=== PATIENT | female | born 1990 | race Caucasian/White ===

== ENCOUNTER → 2017-02-09 | Outpatient (REF) | payer OTHER ==
[~2017-02-09] MED LIST: ACET50TA PO; IBUP80TA PO; VITAPRTA PO
== END ==
LOC: M LAB REF 17:06
PROVIDERS: ATTEND Physician Assistant Medical
DX: N39.0 Urinary tract infection, site not specified (principal)

== ENCOUNTER → 2017-04-26 | Outpatient (CLI) | payer OTHER ==
[2017-04-26 20:06] LABS: BASO % 0.2 % (0.0-1.0); EOS # 0.2 10^3/uL (0.0-0.50); HEMATOCRIT 40.1 % (36.0-47.0); HEMOGLOBIN 13.6 g/dl (12.0-16.0); IMMATURE GRANULOCYTE % 0.2 % (0-0); LYMPH # 2.8 10^3/uL (1.5-6.5); LYMPH % 34.4 % (24.0-44.0); MEAN CORPUSCULAR HEMOGLOBIN 31.6 pg (27.0-33.0); MEAN CORPUSCULAR HGB CONC 33.9 g/dl (32.0-36.5); MEAN CORPUSCULAR VOLUME 93.3 fl (80.0-96.0); MONO # 0.4 10^3/uL (0.0-0.8); MONO % 4.8 % (0.0-5.0); NEUTROPHILS # 4.7 10^3/uL (1.8-7.7); NEUTROPHILS % 57.4 % (36.0-66.0); PLATELET COUNT, AUTOMATED 200 10^3/uL (150-450); RED CELL DISTRIBUTION WIDTH 11.7 % (11.5-14.5); WHITE BLOOD COUNT 8.1 10^3/uL (4.0-10.0)
[2017-04-26 20:56] LABS: ALBUMIN 4.2 GM/DL (3.2-5.2); ALBUMIN/GLOBULIN RATIO 1.11 (1.00-1.93); ALKALINE PHOSPHATASE 54 U/L (45-117); ALT/SGPT 14 U/L (12-78); ANION GAP 6 MEQ/L (8-16); AST/SGOT 9 U/L (7-37); BILIRUBIN,TOTAL 0.2 MG/DL (0.2-1.0); BLOOD UREA NITROGEN 15 MG/DL (7-18); CALCIUM LEVEL 8.9 MG/DL (8.5-10.1); CARBON DIOXIDE LEVEL 30 MEQ/L (21-32); CHLORIDE LEVEL 105 MEQ/L (98-107); CREATININE FOR GFR 0.56 MG/DL (0.55-1.30); FREE T4 1.15 NG/DL (0.76-1.46); GLOMERULAR FILTRATION RATE > 60.0 (>60); GLUCOSE, FASTING 90 MG/DL (70-100); SODIUM LEVEL 141 MEQ/L (136-145)
[2017-04-26 21:38] LABS: TOTAL 25(OH) VITAMIN D 9.1 NG/ML (30.0-100.0)
== END ==
LOC: M SMT 14:21
DX: R53.83 Other fatigue (principal)
CPT/HCPCS: 84443

== ENCOUNTER → 2017-05-23 | Outpatient (REF) | payer OTHER | LOC: M LAB REF 16:54 | DX: R30.0 Dysuria (principal) ==

== ENCOUNTER → 2018-02-26 | Outpatient (REF) | payer OTHER | LOC: M LAB REF 09:07 | DX: Z12.4 Encounter for screening for malignant neoplasm of cervix (principal) ==

== ENCOUNTER → 2018-03-02 | Outpatient (CLI) | payer OTHER ==
[2018-03-02 18:18] LABS: CONTROL LINE HCG INT CTR LINE PRESENT; HCG, SERUM QUALITATIVE POSITIVE (NEGATIVE)
== END ==
LOC: M SMT 13:30
DX: Z01.419 Encounter for gynecological examination (general) (routine) without abnormal findings (principal)
CPT/HCPCS: 84703

== ENCOUNTER 2018-05-24 17:27 | Emergency (ER) | payer OTHER, SELFPAY ==
[~2018-05-24] VITALS: Ht 167.6 cm; Wt 67.3 kg
[~2018-05-24 17:27] MED LIST changes: -ACET50TA PO; +MAPA500T2 PO
[2018-05-24 17:28] VITALS: BP 139/73
[2018-05-24 19:03] LABS: BASO % 0.3 % (0.0-1.0); EOS # 0.2 10^3/uL (0.0-0.50); EOS % 2.1 % (0.0-3.0); HEMATOCRIT 37.2 % (36.0-47.0); HEMOGLOBIN 12.9 g/dl (12.0-15.5); LYMPH # 2.3 10^3/uL (1.5-6.5); LYMPH % 25.4 % (24.0-44.0); MEAN CORPUSCULAR HEMOGLOBIN 31.5 pg (27.0-33.0); MEAN CORPUSCULAR HGB CONC 34.7 g/dl (32.0-36.5); MEAN CORPUSCULAR VOLUME 90.7 fl (80.0-96.0); MONO # 0.5 10^3/uL (0.0-0.8); MONO % 5.1 % (0.0-5.0); NEUTROPHILS % 66.3 % (36.0-66.0); PLATELET COUNT, AUTOMATED 190 10^3/uL (150-450)
[2018-05-24 19:32] LABS: ALBUMIN 3.4 GM/DL (3.2-5.2); ALT/SGPT 35 U/L (12-78); BILIRUBIN,DIRECT 0.1 MG/DL (0.0-0.2); BILIRUBIN,TOTAL 0.4 MG/DL (0.2-1.0); BLOOD UREA NITROGEN 4 MG/DL (7-18); CALCIUM LEVEL 8.2 MG/DL (8.5-10.1); CARBON DIOXIDE LEVEL 24 MEQ/L (21-32); CHLORIDE LEVEL 105 MEQ/L (98-107); CREATININE FOR GFR 0.36 MG/DL (0.55-1.30); GLOMERULAR FILTRATION RATE > 60.0 (>60); GLUCOSE, FASTING 74 MG/DL (70-100); LIPASE 57 U/L (73-393); POTASSIUM SERUM 3.5 MEQ/L (3.5-5.1); SODIUM LEVEL 137 MEQ/L (136-145); TOTAL PROTEIN 7.1 GM/DL (6.4-8.2)
== END 2018-05-24 21:17 | disposition left against medical advice (07) ==
LOC: M ED 17:27
DX: R11.10 Vomiting, unspecified (principal); Z53.21 Procedure and treatment not carried out due to patient leaving prior to being seen by health care provider

== ENCOUNTER → 2018-06-11 | Outpatient (CLI) | payer OTHER ==
--- NOTE | 2018-06-12 05:36 | REP ---
Clinical: Anatomical evaluation. Comparison: None . Findings: Examination demonstrates a single live intrauterine in footling breech presentation. motion is identified by technologist. Placenta is noted anterior and grade grade 1 without evidence for placenta previa or abruption. Amniotic fluid volume is normal. Cervix measures 4.5 cm in length and appears closed. No evidence for nuchal cord. Gestational age by LMP 18 weeks 2 days with YUE 11/10/2018 . Gestational age by current measurements 18 weeks 3 days with YUE 11/09/2018 . FHR equals 141 beats per minute. BPD 4.1 cm 18 weeks 4 days HC 15.3 cm 18 weeks 2 days AC 14.2 cm 19 weeks 4 days FL 2.7 cm 18 weeks 2 days HL is 2.7 cm 18 weeks 4 days HC/AC ratio 1.08 Estimated weight 260 grams ( 68th percentile). Anatomical assessment demonstrates normal structures including cranium, choroid plexus, cavum, cerebellum/posterior fossa, facial features, lungs, four-chamber heart/ventricular outflow tracts, diaphragm, stomach, cord insertion/three-vessel cord, kidneys/bladder, spine, and extremities. Impression: Single live intrauterine in breech presentation demonstrating appropriate interval growth. Anatomical assessment is complete and normal. No gross abnormalities are identified. Electronically Signed by Vidal Newby MD 06/12/2018 05:28 A
== END ==
LOC: M SMT 13:17
PROVIDERS: ATTEND Advanced Practice Midwife
DX: Z34.81 Encounter for supervision of other normal pregnancy, first trimester (principal)

== ENCOUNTER 2018-06-26 16:15 | Outpatient (CLI) | payer OTHER ==
[~2018-06-26] VITALS: Ht 170.2 cm; Wt 68.5 kg
[2018-06-26] MEDS ORDERED: PROT20TA11 PO (16:39)
[2018-06-26] MEDS ORDERED: PRENTAB9 PO (16:39)
[2018-06-26] MEDS ORDERED: LEXA1TAB PO (16:39)
[2018-06-26] MEDS ORDERED: MAPA500T2 PO (16:39)
[2018-06-26 16:41] VITALS: BP 98/58
[2018-06-26] MEDS ORDERED: CYCLOBENZAPRINE 10 MG TAB PO ONE (17:00)
[2018-06-26 18:38] LABS: HEMATOCRIT 33.4 % (36.0-47.0); HEMOGLOBIN 11.6 g/dl (12.0-15.5); MEAN CORPUSCULAR HEMOGLOBIN 32.1 pg (27.0-33.0); MEAN CORPUSCULAR HGB CONC 34.7 g/dl (32.0-36.5); MEAN CORPUSCULAR VOLUME 92.5 fl (80.0-96.0); PLATELET COUNT, AUTOMATED 195 10^3/uL (150-450); RED BLOOD COUNT 3.61 10^6/uL (4.00-5.40); WHITE BLOOD COUNT 9.3 10^3/uL (4.0-10.0)
[2018-06-26 18:41] VITALS: BP 107/68
[2018-06-26 19:10] LABS: ALBUMIN 3.1 GM/DL (3.2-5.2); ALT/SGPT 15 U/L (12-78); AMYLASE 48 U/L (25-115); BILIRUBIN,TOTAL 0.2 MG/DL (0.2-1.0); BLOOD UREA NITROGEN 8 MG/DL (7-18); CALCIUM LEVEL 8.1 MG/DL (8.5-10.1); CARBON DIOXIDE LEVEL 25 MEQ/L (21-32); CHLORIDE LEVEL 105 MEQ/L (98-107); CREATININE FOR GFR 0.35 MG/DL (0.55-1.30); GLOMERULAR FILTRATION RATE > 60.0 (>60); GLUCOSE, FASTING 77 MG/DL (70-100); LIPASE 67 U/L (73-393); POTASSIUM SERUM 3.8 MEQ/L (3.5-5.1); SODIUM LEVEL 136 MEQ/L (136-145); TOTAL PROTEIN 6.5 GM/DL (6.4-8.2)
--- NOTE | 2018-06-27 18:09 | DSES ---
DATE OF ADMISSION: 06/26/2018 DATE OF DISCHARGE: 06/26/2018 HISTORY OF PRESENT ILLNESS: The patient is a 28-year-old female who is a G-5, P-2-0-2-2, with an estimated date of confinement (EDC) of 11/10/2018 at 20 weeks and 3 days based off of her last menstrual period (LMP) and consistent with her first trimester ultrasound. The patient initiated care in her second trimester at 15 weeks with [facility]. 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 She presents to labor and delivery today with complaints of upper left stomach pain and back pain that started today. She was seen in the office today with same complaints, but more sporadic with nausea, and she was encouraged to eat a low fat diet and increase her fluids. After she was seen, she showed up to labor and delivery reporting her pain has gotten worse and it is more constant rather than coming and going. This also goes up into her left upper back. She reports eating a bowl of cereal today for breakfast. She ate chicken salad with a tiny dressing for lunch and she snacked on some pretzels. She was able to take 1000 mg of Tylenol between 2 and 2:30 and reports that it did not help with her pain at all. MEDICAL HISTORY INCLUDES: Anxiety and depression, seasonal allergies, gastroesophageal reflux disease (GERD), cholelithiasis and HSV II. SURGICAL HISTORY: Dilatation and curettage times two. FAMILY HISTORY: Epilepsy. OBJECTIVE: heart rate is a 140 beats per minute, toco does show occasional contraction. The patient reports she does not have any contractions. She does report active movement. The patient's vital signs, blood pressure is 107/68, her heart rate is 79, her respiratory rate is 18 and her temperature is 98.7. Complete blood count (CBC) was done showing a white blood cell count of 9.3. Her red blood cell is 3.61. Her hemoglobin is 11.6, her hematocrit is 33.4. Her platelet count is 195. A comprehensive metabolic panel (CMP) was done with amylase and lipase, all are normal. Her amylase is 48, her lipase is 67. Her AST is 13, her ALT is 15. Her electrolytes are normal. She has slightly low calcium at 8.1. Her urine done was negative. PHYSICAL EXAMINATION: Alert and oriented times three. Respiratory: Regular rate. No use of accessory muscles. Abdomen: Gravid, soft to palpation, no tenderness to palpation. Musculoskeletal: Pain with palpation in left upper back. ASSESSMENT: Intrauterine (IUP) at 20.3 weeks gestation, cholelithiasis attack versus musculoskeletal pain. PLAN: The patient was given a trial of Flexeril to help with her pain. She does report a slight improvement. Given that all labs are negative and with no cholelithiasis, the patient will be discharged home with a trial of baclofen, is encouraged to take a warm bath to loosen up her muscles, take Tylenol as needed with no more than 3000 to 4000 mg of acetaminophen in 24 hours, and baclofen 3 times a day as needed for back pain. She is to call the office if her pain does not improve tomorrow morning after doing all of these things. She is also to call the office with fever, vaginal bleeding, labor signs and symptoms, leaking of fluid and no movement. The patient verbalized understanding and will continue doing a low fat diet.
== END 2018-06-26 19:40 | disposition home or self-care (01) ==
LOC: M LDO 16:15
PROVIDERS: ATTEND Advanced Practice Midwife
DX: O26.892 Other specified pregnancy related conditions, second trimester (principal); M54.5 Low back pain; R10.30 Lower abdominal pain, unspecified; O47.02 False labor before 37 completed weeks of gestation, second trimester; Z3A.20 20 weeks gestation of pregnancy
CPT/HCPCS: 36415; 80053; 82150; 83690; 85027; G0378; G0463

== ENCOUNTER → 2018-08-14 | Outpatient (CLI) | payer OTHER ==
[~2018-08-14] MED LIST changes: +LEXA1TAB PO; +PRENTAB9 PO; +PROT20TA11 PO
[2018-08-14 12:43] LABS: BASO % 0.4 % (0.0-1.0); EOS # 0.1 10^3/uL (0.0-0.50); EOS % 1.5 % (0.0-3.0); HEMATOCRIT 31.2 % (36.0-47.0); HEMOGLOBIN 10.7 g/dl (12.0-15.5); LYMPH % 21.1 % (24.0-44.0); MEAN CORPUSCULAR HEMOGLOBIN 32.8 pg (27.0-33.0); MEAN CORPUSCULAR HGB CONC 34.3 g/dl (32.0-36.5); MEAN CORPUSCULAR VOLUME 95.7 fl (80.0-96.0); MONO # 0.4 10^3/uL (0.0-0.8); MONO % 4.1 % (0.0-5.0); NEUTROPHILS # 6.8 10^3/uL (1.8-7.7); NEUTROPHILS % 71.5 % (36.0-66.0); PLATELET COUNT, AUTOMATED 174 10^3/uL (150-450); RED BLOOD COUNT 3.26 10^6/uL (4.00-5.40); WHITE BLOOD COUNT 9.5 10^3/uL (4.0-10.0)
== END ==
LOC: M LAB 11:24
PROVIDERS: ATTEND Midwife
DX: Z34.02 Encounter for supervision of normal first pregnancy, second trimester (principal); Z3A.00 Weeks of gestation of pregnancy not specified

== ENCOUNTER → 2018-09-22 | Outpatient (REF) | payer OTHER ==
[2018-09-22 21:52] LABS: APPEARANCE, URINE HAZY (CLEAR); BACTERIA, URINE AUTO 2+ (NEGATIVE); BILIRUBIN, URINE AUTO NEGATIVE (NEGATIVE); BLOOD, URINE BLOOD NEGATIVE (NEGATIVE); COLOR, URINE YELLOW (YELLOW); GLUCOSE, URINE (UA) AUTO NEGATIVE (NEGATIVE); KETONE, URINE AUTO NEGATIVE (NEGATIVE); LEUKOCYTE ESTERASE, URINE AUTO TRACE (NEGATIVE); MUCUS, URINE SMALL (NEGATIVE); NITRITE, URINE AUTO NEGATIVE (NEGATIVE); PROTEIN, URINE AUTO NEGATIVE (NEGATIVE); RBC, URINE AUTO 1 /HPF (0-3); SPECIFIC GRAVITY URINE AUTO 1.018 (1.002-1.035); SQUAMOUS EPITHELIAL CELL UR AU 5 /HPF (0-6); UROBILINOGEN, URINE AUTO 0.2 mg/dL (0.0-2.0); WBC, URINE AUTO 1 /HPF (0-3)
== END ==
LOC: M LAB REF 12:18
PROVIDERS: ATTEND Physician Assistant
DX: N39.0 Urinary tract infection, site not specified (principal)

== ENCOUNTER → 2018-10-02 | Outpatient (REF) | payer OTHER | LOC: M LAB REF 17:24 | PROVIDERS: ATTEND Family Medicine | DX: N76.0 Acute vaginitis (principal) ==

== ENCOUNTER → 2019-11-07 | Outpatient (REF) | payer OTHER | LOC: M LAB REF 08:56 | PROVIDERS: ATTEND Physician Assistant | DX: N76.0 Acute vaginitis (principal) ==

== ENCOUNTER → 2019-12-01 | Outpatient (REF) | payer OTHER | LOC: M SFHCLUC 19:09 | PROVIDERS: ATTEND Physician Assistant | DX: N17.9 Acute kidney failure, unspecified (principal) ==